=== PATIENT | male | born 1990 | race Caucasian/White ===

== ENCOUNTER 2016-11-15 09:09 | Inpatient (IN) | payer OTHER ==
[2016-11-12 09:43] VITALS: BMI 30.2
[~2016-11-15 09:09] MED LIST: DEXAMETHASONE SOD PHOSPHATE 10 MG/ML 1 ML VIAL IV ONE; HEPARIN SODIUM,PORCINE 5,000 UNIT/ML 1 ML VIAL SQ ONE; HYDROmorphone 1 MG/ML 1 ML SYRINGE IVP PRN; LIDOCAINE 1% 20 ML VIAL (10MG/ML) FOR IV START INTRADERMA PRN; MIDAZOLAM 2 MG/2 ML VIAL IV PRN; ONDANSETRON 4 MG/2 ML VIAL IVP ONE; SCOPOLAMINE 1.5MG/72HR PATCH TRANSDERM ONE; ceFAZolin 2 GM in SODIUM CHLORIDE 0.9% 100 ML IVPB ONE; metroNIDAZOLE-NS PMX 500 MG in SALINE 1 100ML.BAG IVPB ONE
[2016-11-15] MEDS: LACTATED RINGERS 1,000 ML IV SCH (10:01)
[2016-11-15] MEDS ORDERED: LIDOCAINE 1% INJ 10MG/ML (20 ML MDV) ONE (10:43)
[2016-11-15] MEDS ORDERED: PROPOFOL 10 MG/ML 20 ML VIAL IV ONE (10:43)
[2016-11-15] MEDS ORDERED: KETOROLAC 30 MG/ML 1 ML VIAL ONE (10:43)
[2016-11-15] MEDS ORDERED: MIDAZOLAM 2 MG/2 ML VIAL ONE (10:43)
[2016-11-15] MEDS ORDERED: fentaNYL (PF) 50 MCG/ML 2 ML AMP ONE (10:43)
[2016-11-15] MEDS ORDERED: SUCCINYLCHOLINE CHLORIDE 100 MG/5 ML SYR IV ONE (10:43)
[2016-11-15] MEDS ORDERED: BUPIVACAIN-EPI 0.25%-1:200,000 30 ML VIAL SQ ONE (11:14)
[2016-11-15] MEDS: BUPIVACAINE LIPOSOME/PF 1.3% 20 ML, SODIUM CHLORIDE 0.9% 10 ML MISCELLANE ONE ×4 (11:26→11:41)
[2016-11-15] MEDS ORDERED: HYDROcodone/APAP 5-325MG 1 EACH TAB PO PRN (11:55)
--- NOTE | 2016-11-15 12:50 | P.OP ---
Date of Procedure: 11/15/16 Preoperative Diagnosis: Recurrent pilonidal cyst and abscess Postoperative Diagnosis: Same Procedure(s) Performed: Excisiion of large complex pilonidal abscess measuring 10x4x3 cm with multiple draining sinuses Application of wound vac 10x4 x 3 cm Anesthesia: PIYUSH, local Surgeon: Blanca Fraire Estimated Blood Loss (ml): 10 Pathology: other Condition: stable Disposition: PACU Indications for Procedure: 26 yrs old male presents with recurrent draining abscess in the lower midline back. Prior history of spontaneous drainage and resolution. Informed consent obtained and patient elected to undergo excision of pilonidal abscess Operative Findings: Multiple draining sinuses in lower midline which were all connected to chronic pilonidal abscess cavity Description of Procedure: The patient was brought to the operating room and placed in supine position. Gen. anesthesia with endotracheal intubation was performed as per anesthesia team. Patient was then placed in prone jackknife position. The perianal area was exposed using tape over the gluteal area. A timeout was performed to verify correct patient, correct procedure and correct side. Patient was confirmed to receive perioperative IV antibiotics. Betadine spray was used to clean the area. Sterile drapes were applied. 30 mL of local anesthetic was infiltrated to create a field block. There was a draining sinus in the lower back with surrounding induration. There were multiple sinuses in the lower midline which were not visible earlier secondary to body hair. Multiple draining sinuses were identified which led to a single cavity. An elliptical incision was made around the uppermost draining sinus and was removed using electrocautery till the draining sinus tract led to cavity connecting the lower sinuses. Another elliptical incision was made incorporating the lower draining sinuses. They were all connected to a single pilonidal abscess. Circumferential dissection was carried out using Bovie electrocautery and the entire cyst was removed which measured 10 x 4 x 3 cm. The resulting cavity was checked for hemostasis. The subcutaneous flap were mobilized to close the base of the defect using 3-o strattafix. The cavity was irrigated with saline. Hemostasis was checked. Adaptic dressing was placed at the base of the wound. A black sponge wound VAC was inserted and was tunneled to bring it in the upper back. Wound VAC was connected to a pressure of 125 mm of Hg. The sponge, instrument and needle count were correct 2 . Patient tolerated the procedure well and was taken to postanesthesia care unit in stable condition
[2016-11-16] MEDS ORDERED: SILVER NITRATE APPLICATOR 1 EACH STICK..EA. TOPICAL STA (08:47)
[2016-11-16] MEDS ORDERED: BUPIVACAIN-EPI 0.25%-1:200,000 30 ML VIAL SQ ONE (09:32)
--- NOTE | 2016-11-16 10:01 | P.PN ---
Subjective Principal diagnosis: PIlonidal abscess S/P excision of complex pilonidal abscess with wound vac. >100 ml og blood in wound vac and clotsin the incision. No pain. NO new complaints Objective - Vital Signs Vital signs: Vital Signs Temp 98.4 F 11/16/16 08:00 Pulse 74 11/16/16 08:00 Resp 16 11/16/16 08:00 BP 120/64 11/16/16 08:00 Pulse Ox 99 11/16/16 08:00 Intake & Output 11/15/16 11/16/16 11/16/16 18:59 06:59 18:59 Intake Total 1340 650 Output Total 10 Balance 1330 650 Weight 106.594 kg Intake: IV 1100 Oral 240 650 Output: Estimated Blood Loss 10 Other: # Voids 1 - Exam Wound vac removed . 100 cc of fresh blood with clots evacuated. Since the wound is located in the cleft, difficult to see the bleede. Packing done with Gauze Assessment and Plan (1) Pilonidal abscess of cleft Status: Acute Plan: 1. TO OR for control of bleeding and wound vac change 2. Explained to patient and mother.
[2016-11-16] MEDS ORDERED: DEXAMETHASONE SOD PHOSPHATE 10 MG/ML 1 ML VIAL IV STA (10:02)
[2016-11-16] MEDS ORDERED: FAMOTIDINE 20 MG/2 ML VIAL IV STA (10:02)
[2016-11-16] MEDS ORDERED: METOCLOPRAMIDE 5 MG/ML 2 ML VIAL IVP STA (10:02)
[2016-11-16] MEDS ORDERED: LACTATED RINGERS 1,000 ML IV ONE ×2 (10:20)
[2016-11-16 10:29] LABS: Basophils % (A) 0 %; CH 30.4; CHCM 34.8; Eosinophils # (A) 0.1 k/uL (0-0.7); Eosinophils % (A) 1 %; HCT 44.9 % (39.0-53.0); HDW 2.88; HGB 15.3 gm/dL (13.0-17.5); Luc # (Auto) 0.19; Luc % (Auto) 1; Lymphocytes % (A) 14 %; MCH 29.8 pg (25.0-35.0); MCV 87.7 fL (80.0-100.0); Mean Platelet Volume 6.2; Monocytes # (A) 0.8 k/uL (0-1.0); Monocytes % (A) 5 %; Neutrophils % (A) 79 %; RBC 5.12 m/uL (4.30-5.90); RDW 13.7 % (11.5-15.5); WBC 15.1 k/uL (3.8-10.6); WBC (Perox) 15.11
[2016-11-16] MEDS ORDERED: MIDAZOLAM 2 MG/2 ML VIAL IV ONE (10:49)
[2016-11-16] MEDS ORDERED: PROPOFOL 10 MG/ML 20 ML VIAL IV ONE (10:59)
[2016-11-16] MEDS ORDERED: LIDOCAINE 1% INJ 10MG/ML (20 ML MDV) ONE (10:59)
[2016-11-16] MEDS ORDERED: fentaNYL (PF) 50 MCG/ML 2 ML AMP ONE (10:59)
[2016-11-16] MEDS ORDERED: MIDAZOLAM 2 MG/2 ML VIAL ONE (10:59)
--- NOTE | 2016-11-16 14:09 | P.PN ---
Subjective 26-year-old being seen and examined this morning did note the patient has a wound VAC to the pilonidal area Dr. tovar did remove the wound VAC there was 100 mL of fresh blood with clots evacuated. Decision was made patient would need to return to the OR for control of the bleeding and the wound VAC to be changed patient and mother at the bedside were aware of the plan of care. patient is postop excision of a complex pilonidal abscess measuring 10 x 4 x 3 cm with multiple draining sinuses with application of a wound VAC for recurrent pilonidal cyst and abscess on November 15. Objective - Vital Signs Vital signs: Vital Signs Temp 97.7 F 11/16/16 13:00 Pulse 70 11/16/16 13:00 Resp 16 11/16/16 13:00 BP 91/42 11/16/16 13:00 Pulse Ox 96 11/16/16 13:00 Intake & Output 11/15/16 11/16/16 11/16/16 18:59 06:59 18:59 Intake Total 5590 787 2353 Output Total 10 25 Balance 1330 650 975 Weight 106.594 kg Intake: IV 1100 1000 Oral 240 650 Output: Estimated Blood Loss 10 25 Other: Voiding Method Toilet # Voids 1 - Exam Physical exam 26-year-old male seen and examined pleasant cooperative oriented 3 Lungs essentially clear on room air Heart S1-S2 audible regular no murmur Abdomen soft nontender wound VAC to the surgical site oozing bloody drainage Extremities no edema - Labs CBC & Chem 7: 11/16/16 10:19 Labs: Abnormal Lab Results - Last 24 Hours (Table) 11/16/16 Range/Units 10:19 WBC 15.1 H (3.8-10.6) k/uL Neutrophils # 12.0 H (1.3-7.7) k/uL Assessment and Plan Plan: Impression Reoccurring draining abscess in the lower midline back Status post November 15 Excisiion of large complex pilonidal abscess measuring 10x4x3 cm with multiple draining sinuses with a wound VAC placed No comorbidities Operative findings showed Multiple draining sinuses in lower midline which were all connected to chronic pilonidal abscess cavity 11/15/2016 Prior history of spontaneous drainage and resolution pilonidal cyst and abscess Plan Wound VAC care as ordered Check labs in the morning Pain control Further recommendations pending DVT and GI prophylaxis The above dictated assessment and findings were discussed with dr bennett . Impression and the plan of care have been dictated as directed. Albina Mosley nurse practitioner acting as a scribe for dr bennett
[2016-11-16] MEDS: LACTATED RINGERS 1,000 ML IV SCH (16:23)
[2016-11-17] MEDS: LACTATED RINGERS 1,000 ML IV SCH (06:50)
[2016-11-17 09:40] LABS: Basophils % (A) 0 %; CH 30.3; CHCM 34.3; Eosinophils % (A) 0 %; HCT 44.2 % (39.0-53.0); HDW 2.82; HGB 14.6 gm/dL (13.0-17.5); Luc # (Auto) 0.18; Luc % (Auto) 2; Lymphocytes # (A) 2.6 k/uL (1.0-4.8); Lymphocytes % (A) 23 %; MCH 29.3 pg (25.0-35.0); MCV 88.7 fL (80.0-100.0); Mean Platelet Volume 6.2; Monocytes # (A) 0.6 k/uL (0-1.0); Monocytes % (A) 5 %; Neutrophils % (A) 70 %; RBC 4.98 m/uL (4.30-5.90); WBC 11.3 k/uL (3.8-10.6); WBC (Perox) 11.14
--- NOTE | 2016-11-17 15:37 | P.PN ---
Subjective 26-year-old male being seen and examined this morning currently resting in bed. Currently has a wound VAC to the surgical site in place. Patient states pain medication effective for pain control. ict managers is pursuing the discharge plan. ict managers note indicates that the [employer] contacted the insurance company and they will not expedite since they do not feel this is a life-threatening condition. Insurance company indicates that it could take up to 14 days for an answer per the insurance company to indicate whether the patient has coverage for the wound VAC case coordinator indicated the cost of the wound VAC would be 160 a day for the pump and $269 for the case of 5. This would be need to pay paid out of pocket the wound VAC is at 75mm. Patient is afebrile This was discussed with the patient and the patient's parents. They are asking if there could be an alternative method for the wound care the wound VAC is not covered by insurance Patients being treated for a pilonidal abscess of cleft. . Patient is status post excision of complex pilonidal abscess measuring 10 x 4 x 3 with multiple draining sinuses this was done on November 15 the wound VAC at that time was applied following morning patient needed to return to the OR to control the bleeding and the wound VAC needed to be changed this was done on November 16 currently the wound VAC is at 75 mm of mercury Objective - Vital Signs Vital signs: Vital Signs Temp 98.7 F 11/17/16 15:00 Pulse 80 11/17/16 15:00 Resp 20 11/17/16 15:00 BP 131/72 11/17/16 15:00 Pulse Ox 96 11/17/16 15:00 Intake & Output 11/16/16 11/17/16 11/17/16 18:59 06:59 18:59 Intake Total 1000 240 Output Total 25 Balance 975 240 Intake: IV 1000 Oral 240 Output: Estimated Blood Loss 25 Other: Voiding Method Toilet # Voids 1 2 - Exam Physical exam 26-year-old male seen and examined pleasant cooperative oriented 3 Lungs essentially clear on room air no shortness of breath Heart S1-S2 audible regular no murmur Abdomen soft nontender wound VAC to the surgical site dressing to the surgical site dry Extremities no edema - Labs CBC & Chem 7: 11/17/16 09:06 Labs: Abnormal Lab Results - Last 24 Hours (Table) 11/17/16 Range/Units 09:06 WBC 11.3 H (3.8-10.6) k/uL Neutrophils # 8.0 H (1.3-7.7) k/uL Assessment and Plan Plan: Impression Reoccurring draining abscess in the lower midline back Status post November 15 Excisiion of large complex pilonidal abscess measuring 10x4x3 cm with multiple draining sinuses with a wound VAC placed No comorbidities Operative findings showed Multiple draining sinuses in lower midline which were all connected to chronic pilonidal abscess cavity 11/15/2016 Prior history of spontaneous drainage and resolution pilonidal cyst and abscess Status post wound VAC removed November 16 100 mL of fresh blood with clots evacuated wound is located cleft wound VAC reapplied after bleeding controlled Plan Wound VAC care as ordered Check labs in the morning Pain control Further recommendations pending DVT and GI prophylaxis The above dictated assessment and findings were discussed with dr bennett . Impression and the plan of care have been dictated as directed. Albina Mosley nurse practitioner acting as a scribe for dr bennett
[2016-11-17] MEDS: DOCUSATE 100 MG CAP PO SCH (21:01)
[2016-11-18] MEDS: LACTATED RINGERS 1,000 ML IV SCH (00:46)
[2016-11-18] MEDS ORDERED: SILVER NITRATE APPLICATOR 1 EACH STICK..EA. TOPICAL ONE (06:46)
[2016-11-18] MEDS ORDERED: SILVER NITRATE APPLICATOR 1 EACH STICK..EA. TOPICAL STA (06:57)
[2016-11-18 07:34] VITALS: BP 124/69; PULSE 73; RESP 20; TEMP 98.4
[2016-11-18] MEDS: DOCUSATE 100 MG CAP PO SCH (07:52)
--- NOTE | 2016-11-18 12:10 | P.DS ---
Providers Date of admission: 11/17/16 15:00 Expected date of discharge: 11/18/16 Attending physician: Blanca Tovar Primary care physician: Stated None Hospital Course: 26-year-old male presented for treatment of pilonidal abscess of vince cleft. . Patient is status post excision of complex pilonidal abscess measuring 10 x 4 x 3 with multiple draining sinuses this was done on November 15 the wound VAC at that time was applied following morning patient needed to return to the OR to control the bleeding and the wound VAC needed to be changed this was done on November 16 currently the wound VAC is at 75 mm of mercury On the morning of the [address] tovar who did apply a perva wound VAC to the affected area. Discussed with the patient nursing staff and the mother if the seal was not maintained to turn the machine off visiting nurse will remove it and apply Aquacel silver rope dressing which is to be changed every 48 hours. The plan will be for the patient to follow-up with Dr. Hernandez in the wound care center this coming Tuesday in which an appointment was made. cash manager did set up for home care to see patient on November 19 and the . Patient was felt to be hemodynamically stable and appropriate proceed with a discharge Impression Reoccurring draining abscess in the lower midline back Status post November 15 Excisiion of large complex pilonidal abscess measuring 10x4x3 cm with multiple draining sinuses with a wound VAC placed No comorbidities Operative findings showed Multiple draining sinuses in lower midline which were all connected to chronic pilonidal abscess cavity 11/15/2016 Prior history of spontaneous drainage and resolution pilonidal cyst and abscess Status post wound VAC removed November 16 100 mL of fresh blood with clots evacuated wound is located cleft wound VAC reapplied after bleeding controlled The above dictated assessment and findings were discussed with dr bennett . Impression and the plan of care have been dictated as directed. Albina Mosley nurse practitioner acting as a scribe for dr bennett Plan - Discharge Summary New Discharge Prescriptions: Docusate [Colace] 100 mg PO BID #30 capsule HYDROcodone/APAP 5-325MG [Lee 5-325] 1 tab PO Q4HR PRN #30 tab PRN Reason: Pain Discharge Medication List Docusate [Colace] 100 mg PO BID #30 capsule 11/14/16 [Rx] HYDROcodone/APAP 5-325MG [Lee 5-325] 1 tab PO Q4HR PRN #30 tab 11/14/16 [Rx] Sulfamethox-Tmp 800-160Mg [Bactrim DS 800-160 mg] 1 tab PO Q12HR 11/17/16 [ History] Follow up Appointment(s)/Referral(s): Joe Hernandez MD [STAFF PHYSICIAN] - 11/23/16 (Needs wound vac. Pilonidal abscess) Blanca Tovar MD [STAFF PHYSICIAN] - 11/23/16 1:40 pm [facility], [NON-STAFF] - 1 Week Patient Instructions/Handouts: Pilonidal Cyst (GEN) Activity/Diet/Wound Care/Special Instructions: No soaking bath or swimming. Ok to shower. Do not drive while taking Lee for pain. May take ibuprofen 600 mg po three times a day if pain is not controlled. Wound vac change every 48- 72 hrs once approved by insurance Regular diet Activity as tolerated. If seal in not maintained, turn the machine off. Visiting nurse will remove it and apply aquacel silver rope dressing which can be changed every 48 hrs. Discharge Disposition: HOME WITH HOME HEALTH SERVICES
== END 2016-11-18 13:30 | disposition home health service (06) | DRG 572 ==
LOC: OR 09:09 → 3OBS 12:16 → 4MS4W 11-16 16:10 → OR 11-17 15:00
PROVIDERS: ADMIT Surgery; ATTEND Surgery
PROC: 0JB90ZZ Excision of Buttock Subcutaneous Tissue and Fascia, Open Approach (ICD-10-PCS; principal; 2016-11-17)
DX: L05.01 Pilonidal cyst with abscess (principal)
CPT/HCPCS: 85025; 86850; 86900; 86901; 88304